=== PATIENT | female | born 1985 | race Caucasian/White ===

== ENCOUNTER 2017-07-22 00:04 | Observation (INO) ==
[2017-07-22] MEDS ORDERED: NS 1,000 ML IV ONE (00:46)
[2017-07-22] MEDS ORDERED: SALINE FLUSH 10ml SYRINGE IVF PRN (00:46)
--- NOTE | 2017-07-22 01:16 | Emergency Department Report ---
Overdose HPI - General Chief Complaint: Allergic Reaction Stated Complaint: allergic reaction, soa, "feels drunk" Time Seen by Provider: 07/22/17 00:46 Source: patient, family, RN notes reviewed, old records reviewed Mode of arrival: ambulatory Limitations: no limitations - History of Present Illness HPI Narrative: 32yo woman presents to the ER for evaluation of 'allergic reaction'. Pt has had cold sx (cough, congestion, rhinorrhea) for the last week. Tonight, pt, in a fit of desperation, took 1/2 of a bottle of delsym (3fl oz, 90mL; recommended dose is 10mL). Shortly thereafter, pt became hot, flushed, and anxious. Pt then developed a sensation of paralysis, followed by a sensation of dissociation. Pt presents to the ER with her with an ataxic gait. Pt has taken dextromethorphan (DXM) in the past without similar sx. She has also taken too much DXM, 7 years ago, and had similar, but not as severe, sx. Pt adamantly denies intentionally overdosing or taking anything else with the DXM. complaint: accidental overdose Onset (ago): hour(s) Timing confirmed by: spouse Intent: other (Wanted to stop coughing and sleep) Context: Accidental Overdose: medication error Associated symptoms: paranoia, shortness of breath, nausea/vomiting, other ( Dissociation; flushing) Treatments Prior to Arrival: none - Related Data Home Medications Medication Instructions Recorded Confirmed Hydrocodone/APAP 10/325 [[place] 1 tab PO DAILY 07/22/17 07/22/17 10/325] Allergies Allergy/AdvReac Type Severity Reaction Status Date / Time Penicillins Allergy Severe Anaphylactic Verified 07/22/17 00:30 Shock Review of Systems All systems: reviewed and negative except as stated Constitutional: Reports: as per HPI, fever (flushing). Denies: chills, weakness , weight change, night sweats ENT: Reports: as per HPI, congestion. Denies: ear pain, throat pain, dental pain, hearing loss, epistaxis, dysphagia Respiratory: Reports: as per HPI, cough. Denies: dyspnea, wheezes, hemoptysis, stridor Neurological: Reports: as per HPI, confusion, abnormal gait. Denies: headache, weakness, numbness, paresthesias, vertigo Psychiatric: Reports: as per HPI, other (Dissociation) Endocrine: Reports: as per HPI, heat or cold intolerance. 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 Chlamydia Yes Post Menopausal No Now No - Social History Smoking status: Current every day smoker Substance use type: does not use Alcohol intake frequency: does not drink Physical Exam - Limitations Limitations: no limitations - General General appearance: alert, in no apparent distress - Normal Exams: Head:: Normocephalic without trauma ENMT:: No facial trauma, nasal exudates, pharyngeal erythema, or exudates are noted Neck:: Full range of motion, without adenopathy Chest/Respirations:: Clear all marrero, with good airflow, and symmetry bilaterally Abdomen:: Bowel sounds positive, soft, non-tender, non-distended, no hepatosplenomegaly, masses or bruits noted Lymphatic:: No lymphadenopathy Musculoskeletal:: No tenderness, or deformity noted, good range of motion, all extremities Integumentary:: No rashes, hives, or bruising noted Neurological:: Patient is alert, and oriented, cranial nerves, motor/sensory/ cerebellar, exams w/o gross deficits, to observation - Eye Eye exam: Present: PERRL, EOMI. Absent: normal appearance (Grossly enlarged pupils), scleral icterus - Cardiovascular Cardiovascular exam: Present: normal rhythm, tachycardia, normal heart sounds, + S1, +S2. Absent: regular rate, rubs, gallop, clicks, +S3, +S4 - Skin Skin exam: Present: diaphoresis - Neurological Exam Neurological exam: Absent: normal gait (Ataxic) - Psychiatric Psychiatric exam: Present: agitated (dissociated), anxious Course - Consultations Consultation #1: [facility] Telemed: Will admit pt for observation. Requests confirmation of tx with Poison Control. Time: 01:46 Consultation #2: Poison Control Center: Pt is displaying classic s/s of DXM overdose. Delsym is the long-acting version of DXM. Care is supportive, fluids to prevent dehydration/rhabdo, Benzos prn for anxiety, and other measures as needed. Time: 01:53 Vital Signs Temperature 97.7 F 07/22/17 00:10 Pulse Rate 112 H 07/22/17 00:10 Respiratory Rate 16 07/22/17 00:10 Blood Pressure 140/87 H 07/22/17 00:10 Pulse Oximetry 100 07/22/17 00:10 Temperature 97.7 F 07/22/17 00:10 Pulse Rate 112 H 07/22/17 00:10 Respiratory Rate 16 07/22/17 00:10 Blood Pressure 140/87 H 07/22/17 00:10 Pulse Oximetry 100 07/22/17 00:10 Overdose - MDM Narrative Medical decision making narrative: Pt with classic presentation of DXM overdose; pt took appx 4.5mg/Kg. Discussed with hospitalist, who will admit for obs/sx treatment. PC confirms symptomatic treatment. Adds potential of using benzos for agitation. - Differential Diagnosis Likely: cocaine intoxication, poisoning by opiate or related narcotic, drug overdose, acetaminophen overdose, accidental drug ingestion - Medical Records Attestation: I reviewed the patient's medical records. - Lab Data Attestation: I reviewed the patient's lab results. Result diagrams: 07/22/17 01:16 07/22/17 01:16 Lab Results 07/22/17 07/22/17 07/22/17 Range/Units 01:03 01:03 01:03 WBC (4.5-11.0) T/MM3 RBC (4.00-5.20) M/MM3 Hgb (12-16) GM/DL Hct (36-46) % MCV (80-100) UM3 MCH (26-34) UUG MCHC (31-37) GM/DL RDW Std Deviation (36.9-50.2) FL Plt Count (130-400) T/MM3 MPV (9.4-12.4) UM3 Immature Gran % (Auto) (0.0-0.5) % Neut % (Auto) (33-66) % Lymph % (Auto) (23-45) % [place] % (Auto) (0-9.0) % Eos % (Auto) (0-4) % Baso % (Auto) (0-2) % Neut # (Auto) (1.8-7.7) T/MM3 Lymph # (Auto) (1-4.8) T/MM3 [place] # (Auto) (0-0.8) T/MM3 Eos # (Auto) (0-0.5) T/MM3 Baso # (Auto) (0-0.2) T/MM3 Abs Immat Gran (auto) (0.00-0.03) T/MM3 Turbidity (0-20) Sodium (134-144) MEQ/L Potassium (3.6-5) MEQ/L Chloride (98-107) MEQ/L Carbon Dioxide (22-30) MEQ/L Anion Gap (5-15) meq/L BUN (7-17) MG/DL Creatinine (0.7-1.2) mg/dL GFR Calculation BUN/Creatinine Ratio (6-26) RATIO Glucose (65-110) MG/DL Calculated Osmolality (261-280) MOSM/KG Calcium (8.4-10.2) MG/DL Total Bilirubin (0.20-1.30) MG/DL Icterus Index (0-7) AST (14-36) U/L ALT (1-35) U/L Alkaline Phosphatase (38-126) U/L Total Creatine Kinase (30-135) U/L Total Protein (6.3-8.2) g/dL Albumin (3.5-5.0) g/dL Globulin (2.4-3.6) G/DL Albumin/Globulin Ratio (1.1-2.2) RATIO Specimen Hemolysis (0-25) Ur Collection Type Urine, void-cc/notcc Urine Color Yellow (YELLOW) Urine Clarity Clear Urine pH 6.5 (5.0-8.0) Ur Specific [place] <=1.005 L (1.015-1.025) Urine Protein Negative (NEGATIVE) Urine Glucose (UA) Negative (NEGATIVE) Urine Ketones Negative (NEGATIVE) Urine Occult Blood Negative (NEGATIVE) Urine Nitrate Negative (NEGATIVE) Urine Bilirubin Negative (NEGATIVE) Urine Urobilinogen 0.2 (NORMAL) EU/DL Ur Leukocyte Esterase Negative (NEGATIVE) Urinalysis Comment Microscopic not ind. Salicylates (2-20) MG/DL Urine Opiates Screen Positive ng/mL Ur Oxycodone Screen Negative ng/mL Urine Methadone Screen Negative ng/mL Ur Propoxyphene Screen Negative ng/mL Acetaminophen (10-30) UG/ML Ur Barbiturates Screen Negative ng/mL U Tricyclic Antidepress Negative ng/mL Ur Phencyclidine Scrn Negative ng/mL Ur Amphetamines Screen Negative ng/mL U Methamphetamines Scrn Negative ng/mL U Benzodiazepines Scrn Negative ng/mL Urine Cocaine Screen Negative ng/mL U Cannabinoids Screen Negative ng/mL Ur Drug Screen Confirm Sent out Alcohol, Quantitative (<10) mg/dL 07/22/17 07/22/17 Range/Units 01:16 01:16 WBC 8.1 (4.5-11.0) T/MM3 RBC 4.25 (4.00-5.20) M/MM3 Hgb 13.2 (12-16) GM/DL Hct 39.2 (36-46) % MCV 92.2 (80-100) UM3 MCH 31.1 (26-34) UUG MCHC 33.7 (31-37) GM/DL RDW Std Deviation 40.9 (36.9-50.2) FL Plt Count 317 (130-400) T/MM3 MPV 8.4 L (9.4-12.4) UM3 Immature Gran % (Auto) 0.1 (0.0-0.5) % Neut % (Auto) 40.5 (33-66) % Lymph % (Auto) 47.6 H (23-45) % [place] % (Auto) 9.8 H (0-9.0) % Eos % (Auto) 1.6 (0-4) % Baso % (Auto) 0.4 (0-2) % Neut # (Auto) 3.3 (1.8-7.7) T/MM3 Lymph # (Auto) 3.8 (1-4.8) T/MM3 [place] # (Auto) 0.8 (0-0.8) T/MM3 Eos # (Auto) 0.1 (0-0.5) T/MM3 Baso # (Auto) 0.0 (0-0.2) T/MM3 Abs Immat Gran (auto) 0.01 (0.00-0.03) T/MM3 Turbidity < 20 (0-20) Sodium 144 (134-144) MEQ/L Potassium 3.4 L (3.6-5) MEQ/L Chloride 105 (98-107) MEQ/L Carbon Dioxide 26 (22-30) MEQ/L Anion Gap 13 (5-15) meq/L BUN 17.0 (7-17) MG/DL Creatinine 0.8 (0.7-1.2) mg/dL GFR Calculation 82 BUN/Creatinine Ratio 21 (6-26) RATIO Glucose 100 (65-110) MG/DL Calculated Osmolality 279 (261-280) MOSM/KG Calcium 9.4 (8.4-10.2) MG/DL Total Bilirubin < 0.10 L (0.20-1.30) MG/DL Icterus Index < 2 (0-7) AST 16 (14-36) U/L ALT 13 (1-35) U/L Alkaline Phosphatase 57 (38-126) U/L Total Creatine Kinase 71 (30-135) U/L Total Protein 7.4 (6.3-8.2) g/dL Albumin 4.6 (3.5-5.0) g/dL Globulin 2.8 (2.4-3.6) G/DL Albumin/Globulin Ratio 1.6 (1.1-2.2) RATIO Specimen Hemolysis < 15 (0-25) Ur Collection Type Urine Color (YELLOW) Urine Clarity Urine pH (5.0-8.0) Ur Specific [place] (1.015-1.025) Urine Protein (NEGATIVE) Urine Glucose (UA) (NEGATIVE) Urine Ketones (NEGATIVE) Urine Occult Blood (NEGATIVE) Urine Nitrate (NEGATIVE) Urine Bilirubin (NEGATIVE) Urine Urobilinogen (NORMAL) EU/DL Ur Leukocyte Esterase (NEGATIVE) Urinalysis Comment Salicylates < 1.0 L (2-20) MG/DL Urine Opiates Screen ng/mL Ur Oxycodone Screen ng/mL Urine Methadone Screen ng/mL Ur Propoxyphene Screen ng/mL Acetaminophen < 10 L (10-30) UG/ML Ur Barbiturates Screen ng/mL U Tricyclic Antidepress ng/mL Ur Phencyclidine Scrn ng/mL Ur Amphetamines Screen ng/mL U Methamphetamines Scrn ng/mL U Benzodiazepines Scrn ng/mL Urine Cocaine Screen ng/mL U Cannabinoids Screen ng/mL Ur Drug Screen Confirm Alcohol, Quantitative <10 (<10) mg/dL - Radiology Data Attestation: I reviewed the patient's radiology results. - EKG Data EKG #1 EKG attestation: Yes: I reviewed and interpreted this EKG. EKG shows normal: sinus rhythm, axis, intervals, QRS complexes Rate: tachycardia Interpretation: nonspecific ST-T wave changes Disposition Clinical Impression: Dextromethorphan overdose Qualifiers: Encounter type: initial encounter Injury intent: accidental or unintentional Qualified Code(s): T48.3X1A - Poisoning by antitussives, accidental ( unintentional), initial encounter Disposition: 02 To OBS [facility] [place] Print Language: Polish Condition: Stable Prescriptions: No Action Hydrocodone/APAP [[place] ] 1 tab PO DAILY Referrals: Primary Care,You Choose [Primary Care Provider] - Time of Disposition: 02:03 - Seen By: physician
[2017-07-22 02:38] VITALS: BMI 20.9
[2017-07-22] MEDS: NS 1,000 ML IV SCH ×2 (02:51→13:01)
--- NOTE | 2017-07-22 03:17 | History & Physical Report ---
History of Present Illness Date: 07/22/17 Chief complaint: accidental overdose HPI: 32 yo F with PMH of daily tobacco use presented tot he ED with an "allergic reaction". Pt has had cold sx (cough, congestion, rhinorrhea) for the last week. Tonight, pt, in a fit of desperation, took 1/2 of a bottle of delsym (3fl oz, 90mL; recommended dose is 10mL). Shortly thereafter, pt became hot, flushed , and anxious. Pt then developed a sensation of paralysis, followed by a sensation of dissociation. Pt presents to the ER with her with an ataxic gait. Pt has taken dextromethorphan (DXM) in the past without similar sx. She has also taken too much DXM, 7 years ago, and had similar, but not as severe, sx. Once patient found out she was not having an allergic reaction and that she just took too much, she calmed down and was resting comfortably. She was tachy at rest, she was admitted for further monitoring for worsening of symptoms. Review of Systems All systems PM: 10-point ROS was reviewed, no additional remarkable complaints except Past Medical History Family History: As Above - Social History Smoking status: Current every day smoker Medications Home Medications Medication Instructions Recorded Confirmed Type Hydrocodone/APAP [[place] 1 tab PO DAILY 07/22/17 07/22/17 History ] Allergies Allergy/AdvReac Type Severity Reaction Status Date / Time Penicillins Allergy Severe Anaphylactic Verified 07/22/17 00:30 Shock Exam Vital Signs: Temperature 98.5 F 07/22/17 02:42 Pulse Rate 103 H 07/22/17 02:44 Respiratory Rate 18 07/22/17 02:44 Blood Pressure 144/85 H 07/22/17 02:42 Pulse Oximetry 98 07/22/17 02:44 Telemetry Rhythm: Sinus Tachycardia Height/Weight/BMI: Height 1.68 m Weight 59 kg Body Mass Index 20.9 - Constitutional Present: mild distress (due to stuffy nose and mild cough) - Routine Respiratory Exam Present: CTA bilaterally. Absent: wheezes - Routine Cardiovascular Exam Present: RRR. Absent: murmur - Routine Abdominal Exam Present: soft, normoactive bowel sounds, non distended. Absent: tenderness - Routine Extremities Exam Present: normal capillary refill - Routine Skin Exam Present: dry, warm - Routine Neurological Exam Present: alert, oriented X3, CN II-XII intact - Routine Psychiatric Exam Present: normal affect Results - Labs CBC & Chem 7: 07/22/17 01:16 07/22/17 01:16 Assessment and Plan (1) Dextromethorphan overdose Current visit: Yes Status: Acute Assessment and Plan: patient symptoms slowly improving with supportive care. poison control contacted , agree with plan. Said if symptoms worsen could try benzo's for symptom management. Start IVF, monitor on tele. Half life of dextromethorphan is 6 hours, anticipate D/C home sometime later today. - Physician Narrative Narrative: Date: 07/22/17 Time: 312 Hospital Course Summary Disclaimer: The visit summary below is not to be considered part of the above Progress Note.
[2017-07-22] MEDS: PROMETHAZINE 25 MG INJECTION IVP PRN ×2 (04:02→13:01)
[2017-07-22 11:53] VITALS: BP 119/63; RESP 13; O2SAT 97
[2017-07-22 12:50] VITALS: TEMP 99
[2017-07-22 15:33] VITALS: PULSE 76
--- NOTE | 2017-07-22 15:40 | History & Physical Report ---
History of Present Illness Date: 07/22/17 Chief complaint: accidental overdose HPI: Per telehospitalist: 32 yo F with PMH of daily tobacco use presented tot he ED with an "allergic reaction". Pt has had cold sx (cough, congestion, rhinorrhea) for the last week. Tonight, pt, in a fit of desperation, took 1/2 of a bottle of delsym (3fl oz, 90mL; recommended dose is 10mL). Shortly thereafter, pt became hot, flushed, and anxious. Pt then developed a sensation of paralysis, followed by a sensation of dissociation. Pt presents to the ER with her with an ataxic gait. Pt has taken dextromethorphan (DXM) in the past without similar sx. She has also taken too much DXM, 7 years ago, and had similar, but not as severe, sx. Once patient found out she was not having an allergic reaction and that she just took too much, she calmed down and was resting comfortably. She was tachy at rest, she was admitted for further monitoring for worsening of symptoms. Pt is seen this morning resting in bed. Other than being drowsy, she has no complaints. She states she kept taking dose after dose of Delsym because it wasn't helping and she wanted the cough to stop. She notes she is here visiting her parents. She plans to drive home to [place] tomorrow. Review of Systems All systems PM: 10-point ROS was reviewed, no additional remarkable complaints except Review of systems: fatigue, cough Past Medical History Medical History Updates: smoker Surgical History: appendectomy, surgery L foot for neuroma Family History: F - DM M - breast CA Family History: As Above - Social History Smoking status: Current every day smoker (1/2ppd) Substance use type: does not use Alcohol intake frequency: does not drink Current residence: Apartment/Private Home Social history: No PCP Medications Home Medications Medication Instructions Recorded Confirmed Type Hydrocodone/APAP [[place] 1 tab PO DAILY 07/22/17 07/22/17 History ] Allergies Allergy/AdvReac Type Severity Reaction Status Date / Time Penicillins Allergy Severe Anaphylactic Verified 07/22/17 00:30 Shock Exam Vital Signs: Temperature 99.0 F 07/22/17 12:49 Pulse Rate 76 07/22/17 15:32 Respiratory Rate 13 07/22/17 11:51 Blood Pressure 119/63 07/22/17 11:51 Pulse Oximetry 97 07/22/17 15:05 Height/Weight/BMI: Height 1.68 m Weight 59 kg Body Mass Index 20.9 - Constitutional Present: no acute distress, well nourished, well developed - Routine HEENT Exam Head: Present: normocephalic, atraumatic Eye: Present: EOMI, PERRL ENT: Present: mucous membranes moist, oropharynx clear - Routine Neck Exam Absent: lymphadenopathy - Routine Respiratory Exam Present: CTA bilaterally. Absent: wheezes - Routine Cardiovascular Exam Present: RRR, no murmur - Routine Abdominal Exam Present: soft, normoactive bowel sounds. Absent: tenderness, distended - Routine Extremities Exam Present: no edema, normal capillary refill - Routine Skin Exam Present: dry, warm - Routine Neurological Exam Present: alert, oriented X3, CN II-XII intact - Routine Psychiatric Exam Present: normal affect, cooperative Results - Labs CBC & Chem 7: 07/22/17 01:16 07/22/17 01:16 Assessment and Plan (1) Dextromethorphan overdose Current visit: Yes Status: Acute Assessment and Plan: Assessment Accidental overdose of dextromethorphan Vital URI Tobacco addiction Chronic foot pain (takes [place] once daily) Plan Initial orders per telehospitalist. Patient has done well overnight. Other than feeling tired, she reports she is doing well. She declines taking anything for cough at this time. Has received IVF's. Hasn't needed any PRN benzo's. Dismissed home in stable condition with plan to f-u with a PCP if she isn't improving w/ her respiratory illness. Rec smoking cessation. DVT Prophylaxis: SCD's Resuscitation Status: Full Code - Physician Narrative Physician: other (Dr Martin) Narrative: Date: 07/22/17 Time: 1536 S: Pt doing better, still fatigued but denies cp, n/v/d, f/c or sob. O: Cards: RRR without murmurs Lungs: CTAB without wheezes A/P: Pt doing well, will plan on discharging later today. Hospital Course Summary Disclaimer: The visit summary below is not to be considered part of the above Progress Note.
--- NOTE | 2017-07-22 16:01 | Discharge Summary ---
Discharge Information Date of admission: 07/22/17 01:57 Anticipated date of discharge: 07/22/17 Attending Physician: Naty Martin MD Primary care physician: [facility] Consults: none - Discharge Diagnosis (1) Dextromethorphan overdose Status: Acute accidental OD of dextromethorphan viral URI tobacco addiction chronic foot pain - Laboratory Labs: Laboratory Results - last 48 hr 07/22/17 07/22/17 07/22/17 01:03 01:03 01:03 WBC RBC Hgb Hct MCV MCH MCHC RDW Std Deviation Plt Count MPV Immature Gran % (Auto) Neut % (Auto) Lymph % (Auto) [place] % (Auto) Eos % (Auto) Baso % (Auto) Neut # (Auto) Lymph # (Auto) [place] # (Auto) Eos # (Auto) Baso # (Auto) Abs Immat Gran (auto) Turbidity Sodium Potassium Chloride Carbon Dioxide Anion Gap BUN Creatinine GFR Calculation BUN/Creatinine Ratio Glucose Calculated Osmolality Calcium Total Bilirubin Icterus Index AST ALT Alkaline Phosphatase Total Creatine Kinase Total Protein Albumin Globulin Albumin/Globulin Ratio Specimen Hemolysis Ur Collection Type Urine, void-cc/notcc Urine Color Yellow Urine Clarity Clear Urine pH 6.5 Ur Specific [place] <=1.005 L Urine Protein Negative Urine Glucose (UA) Negative Urine Ketones Negative Urine Occult Blood Negative Urine Nitrate Negative Urine Bilirubin Negative Urine Urobilinogen 0.2 Ur Leukocyte Esterase Negative Urinalysis Comment Microscopic not ind. Salicylates Urine Opiates Screen Positive Ur Oxycodone Screen Negative Urine Methadone Screen Negative Ur Propoxyphene Screen Negative Acetaminophen Ur Barbiturates Screen Negative U Tricyclic Antidepress Negative Ur Phencyclidine Scrn Negative Ur Amphetamines Screen Negative U Methamphetamines Scrn Negative U Benzodiazepines Scrn Negative Urine Cocaine Screen Negative U Cannabinoids Screen Negative Ur Drug Screen Confirm Sent out Alcohol, Quantitative 07/22/17 07/22/17 01:16 01:16 WBC 8.1 RBC 4.25 Hgb 13.2 Hct 39.2 MCV 92.2 MCH 31.1 MCHC 33.7 RDW Std Deviation 40.9 Plt Count 317 MPV 8.4 L Immature Gran % (Auto) 0.1 Neut % (Auto) 40.5 Lymph % (Auto) 47.6 H [place] % (Auto) 9.8 H Eos % (Auto) 1.6 Baso % (Auto) 0.4 Neut # (Auto) 3.3 Lymph # (Auto) 3.8 [place] # (Auto) 0.8 Eos # (Auto) 0.1 Baso # (Auto) 0.0 Abs Immat Gran (auto) 0.01 Turbidity < 20 Sodium 144 Potassium 3.4 L Chloride 105 Carbon Dioxide 26 Anion Gap 13 BUN 17.0 Creatinine 0.8 GFR Calculation 82 BUN/Creatinine Ratio 21 Glucose 100 Calculated Osmolality 279 Calcium 9.4 Total Bilirubin < 0.10 L Icterus Index < 2 AST 16 ALT 13 Alkaline Phosphatase 57 Total Creatine Kinase 71 Total Protein 7.4 Albumin 4.6 Globulin 2.8 Albumin/Globulin Ratio 1.6 Specimen Hemolysis < 15 Ur Collection Type Urine Color Urine Clarity Urine pH Ur Specific [place] Urine Protein Urine Glucose (UA) Urine Ketones Urine Occult Blood Urine Nitrate Urine Bilirubin Urine Urobilinogen Ur Leukocyte Esterase Urinalysis Comment Salicylates < 1.0 L Urine Opiates Screen Ur Oxycodone Screen Urine Methadone Screen Ur Propoxyphene Screen Acetaminophen < 10 L Ur Barbiturates Screen U Tricyclic Antidepress Ur Phencyclidine Scrn Ur Amphetamines Screen U Methamphetamines Scrn U Benzodiazepines Scrn Urine Cocaine Screen U Cannabinoids Screen Ur Drug Screen Confirm Alcohol, Quantitative <10 History of Present Illness HPI: Per telehospitalist: 32 yo F with PMH of daily tobacco use presented tot he ED with an "allergic reaction". Pt has had cold sx (cough, congestion, rhinorrhea) for the last week. Tonight, pt, in a fit of desperation, took 1/2 of a bottle of delsym (3fl oz, 90mL; recommended dose is 10mL). Shortly thereafter, pt became hot, flushed, and anxious. Pt then developed a sensation of paralysis, followed by a sensation of dissociation. Pt presents to the ER with her with an ataxic gait. Pt has taken dextromethorphan (DXM) in the past without similar sx. She has also taken too much DXM, 7 years ago, and had similar, but not as severe, sx. Once patient found out she was not having an allergic reaction and that she just took too much, she calmed down and was resting comfortably. She was tachy at rest, she was admitted for further monitoring for worsening of symptoms. Pt is seen this morning resting in bed. Other than being drowsy, she has no complaints. She states she kept taking dose after dose of Delsym because it wasn't helping and she wanted the cough to stop. She notes she is here visiting her parents. She plans to drive home to [place] tomorrow. Objective Vital signs: Temperature 99.0 F 07/22/17 12:49 Pulse Rate 76 07/22/17 15:32 Respiratory Rate 13 07/22/17 11:51 Blood Pressure 119/63 07/22/17 11:51 Pulse Oximetry 97 07/22/17 15:05 Height/Weight/BMI: Height 1.68 m Weight 59 kg Body Mass Index 20.9 - Constitutional Present: no acute distress, well nourished, well developed - Routine HEENT Exam Head: Present: normocephalic, atraumatic - Routine Respiratory Exam Present: CTA bilaterally. Absent: wheezes - Routine Cardiovascular Exam Present: RRR, no murmur - Routine Abdominal Exam Present: soft, non distended, non tender - Routine Extremities Exam Present: no edema, normal capillary refill - Routine Skin Exam Present: dry, warm - Routine Neurological Exam Present: alert, oriented X3 - Routine Lymphatic Exam Lymphatic: Absent: adenopathy - Routine Psychiatric Exam Present: normal affect, cooperative Hospital Course This is a general summary of the patient's hospital course. For more details refer to the complete medical record. Hospital course: Admitted overnight for accidental OD of cough medicine. Was started on IVF's and didn't require any benzo's. Pt was drowsy this am, but as the day progresses she is alert. She was DC'd in stable condition. Time spent with patient: discharge greater than 30 minutes Resuscitation Status: Full Code Discharge Plan - Discharge Disposition Discharge Date: 07/22/17 Disposition: 01 Discharged Home, Self-Care *Condition: Stable Reason For Visit (Visit label in EMR): accidental overdose - Discharge Medications *Discharge Medications: Continue Hydrocodone/APAP 10/325 [[place] 10/325] 1 tab PO DAILY - Discharge Packet/Instructions *Diet: Regular *Activity: as tolerated *Pain Management/Treatment: n/a *Wound Care: n/a *Expected Signs/Symptoms: gradual improvement in fatigue/drowsiness. *Notify Physician if: you develop new or worsening symptoms *During Business Hours Contact: your regular provider *After Business Hours Contact: [facility] and/or ER *Pending Lab/Results: No Pending Lab - Referrals/Follow Up *Referrals/Follow Up: [facility] [Provider Group] - Patient Handouts - Dismissal Complete Discharge Instructions are:: Complete Physician Narrative - Narrative Attestation Narrative: Date: 07/22/17 Time: 1557 Pt did better morning of discharge, most sx's resolved but pt felt a bit fatigued. Pt denies any SI/HI. Pt medically stable and will go home today.
== END 2017-07-22 16:25 | disposition home or self-care (01) ==
LOC: EDHOLD 00:04 → ED 00:04 → MED 02:30
PROVIDERS: ADMIT Internal Medicine; ATTEND Internal Medicine